=== PATIENT | male | born 2000 | race African-American/Black ===

== ENCOUNTER 2023-03-30 16:51 | Emergency (ER) | payer BC ==
[~2023-03-30] VITALS: Ht 185.4 cm; Wt 72.0 kg
[2023-03-30 17:28] VITALS: BP 103/64
[2023-03-30] MEDS ORDERED: ONDANSETRON HCL 4MG/2ML INJ IV STA (17:39)
[2023-03-30] MEDS ORDERED: SODIUM CHLORIDE 0.9% 1,000 ML IV ONE (17:45)
[2023-03-30 18:36] LABS: BASOPHILS % 0.8 % (0.0-2.0); EOSINOPHILS % 0.9 % (0.0-5.0); HEMATOCRIT. 48.2 % (42.0-52.0); HEMOGLOBIN. 16.9 g/dL (14.0-18.0); LYMPHOCYTES % 38.4 % (20.0-50.0); MEAN CORPUSCULAR HEMOGLOBIN 31.9 pg (28.0-32.0); MEAN CORPUSCULAR VOLUME 91.2 fL (80.0-94.0); MEAN PLATELET VOLUME 8.1 fl (7.4-10.4); MONOCYTES % 5.8 % (2.0-8.0); NEUTROPHILS % 54.1 % (40.0-76.0); PLATELET 238 x1000/uL (130-400); RED BLOOD CELL COUNT 5.28 mill/uL (4.7-6.1); RED CELL DISTRIBUTION WIDTH 15.2 % (11.6-14.6)
[2023-03-30 18:45] LABS: CHLORIDE 109 mEq/L (98-107)
[2023-03-30 19:11] LABS: ETHANOL BLOOD 309 mg/dL
== END 2023-03-30 19:30 | disposition home or self-care (01) ==
LOC: ER 16:51
DX: F10.20 Alcohol dependence, uncomplicated (principal); Y90.8 Blood alcohol level of 240 mg/100 ml or more
CPT/HCPCS: 36415; 80053; 80307; 80320; 80329; 83690; 85025; 96361; 96374; 99283; J2405; J7030; Z7610; G0480